=== PATIENT | female | born 1935 | race Caucasian/White ===

== ENCOUNTER 2016-03-16 17:17 | Emergency (ER) | payer OTHER, MEDICARE ==
[2016-03-16 17:49] VITALS: BP 171/94; PULSE 80; TEMP 97.8; BMI 28.0
[2016-03-16] MEDS ORDERED: SODIUM CHLORIDE 1,000 ML IV SCH (18:15)
--- NOTE | 2016-03-16 18:24 | PDOC ---
History of Present Illness - General Chief Complaint: Diarrhea Stated Complaint: DIARRHEA Time Seen by Provider: 03/16/16 18:03 - History of Present Illness Initial Comments: 03/16/16 18:22 80-year-old female with a past medical history of breast cancer and radiation therapy, on no chemotherapy at this time, GERD, hypertension, hyperlipidemia, prior cholecystectomy Patient states that her granddaughter is currently ill with a gastrointestinal illness Patient states that on Wednesday she started vomiting and vomiting multiple times Then on Wednesday she developed diarrhea She has had both vomiting and diarrhea since then She denies any fever, although she admits to some chills She denies any blood in her vomitus or diarrhea She denies any abdominal pain She denies any chest pain or shortness of breath She denies any sore throat or cough She denies any other complaint at this time, and the remainder of the review of systems is negative Past History - Past Medical History Allergies/Adverse Reactions: Allergies Allergy/AdvReac Type Severity Reaction Status Date / Time naproxen sodium [From Aleve] Allergy Intermediate Swelling Verified 03/16/16 17: 39 Sulfa (Sulfonamide Allergy Mild Hives Verified 03/16/16 17:39 Antibiotics) [Sulfa(Sulfonamide Antibiotics)] Penicillins Allergy Verified 03/16/16 17:39 Home Medications: Ambulatory Orders Atenolol [Tenormin -] 100 mg PO DAILY 03/08/12 Gabapentin [Neurontin -] 600 mg PO HS 03/08/12 Multivit-Min/FA/Lycopene/Lut [Centrum Silver Tablet] 1 each PO DAILY 03/08/12 Simvastatin [Zocor -] 10 mg PO Q48H 03/09/12 Solifenacin Succinate [Vesicare] 10 mg PO AM 10/12/12 Aspirin Coated [Ecotrin -] 81 mg PO DAILY 03/16/16 Gabapentin 300 mg PO DAILY 03/16/16 Ondansetron [Zofran Odt -] 4 mg SL TID #12 od.tablet 03/16/16 Cancer: Yes (BREAST, LUMPECTOMY) GI Disorders: Yes (ACID REFLUX) Disorders: Yes HTN: Yes Hypercholesterolemia: Yes Other medical history: TREMOR - Surgical History Cholecystectomy: Yes Orthopedic Surgery: Yes (KNEE SX LEFT) - Psycho/Social/Smoking Cessation Hx Anxiety: No Suicidal Ideation: No Smoking Status: No Smoking History: Never smoked Number of Cigarettes Smoked Daily: 0 Hx Alcohol Use: No Drug/Substance Use Hx: No Substance Use Type: None Review of Systems - Review of Systems Able to Perform ROS?: Yes Comments:: 03/16/16 18:23 12 point review of systems is as per history of present illness and otherwise negative *Physical Exam - Vital Signs Last Vital Signs Temp Pulse Resp BP Pulse Ox 97.8 F 80 16 171/94 98 03/16/16 17:18 03/16/16 17:18 03/16/16 17:18 03/16/16 17:18 03/16/16 17:18 - Physical Exam Comments: 03/16/16 18:23 Physical exam Last Vital Signs Temp Pulse Resp BP Pulse Ox 97.8 F 80 16 171/94 98 03/16/16 17:18 03/16/16 17:18 03/16/16 17:18 03/16/16 17:18 03/16/16 17:18 GENERAL: The patient is awake, alert, and fully oriented, and in no apparent distress. HEAD: Normal with no signs of trauma. EYES: Sclera anicteric ENT: Mucous membranes slightly dry NECK: Normal range of motion, supple LUNGS: Breath sounds equal, clear to auscultation bilaterally. No wheezes, and no crackles. HEART: Regular rate and rhythm, normal S1 and S2 without murmur, rub or gallop. ABDOMEN: Soft, nontender, normoactive bowel sounds. No guarding, no rebound. No masses appreciated. Abdomen is completely soft and nontender EXTREMITIES: Normal range of motion, no edema. No clubbing or cyanosis. No cords, erythema, or tenderness. NEUROLOGICAL: Cranial nerves II through XII grossly intact. Normal speech, normal gait. PSYCH: Normal mood, normal affect. SKIN: Warm, Dry, normal turgor, no rashes or lesions noted. ED Treatment Course - LABORATORY CBC & Chemistry Diagram: 03/16/16 18:00 03/16/16 18:00 Medical Decision Making - Medical Decision Making 03/16/16 18:24 Most likely viral gastroenteritis, since her granddaughter is ill with the same , and her granddaughter started with the symptoms first 03/16/16 18:57 Laboratory Results - last 24 hr 01/16/17 01/16/17 01/16/17 18:00 18:00 18:00 WBC 5.7 D RBC 4.89 Hgb 14.1 Hct 42.0 MCV 86.0 MCHC 33.6 RDW 12.2 Plt Count 247 MPV 9.0 Sodium 135 L Potassium 3.2 L D Chloride 101 Carbon Dioxide 25 Anion Gap 9 BUN 15 D Creatinine 0.5 L Creat Clearance w eGFR > 60 Random Glucose 104 D Calcium 9.1 Magnesium 1.8 Total Bilirubin 0.4 D AST 59 H D ALT 45 H Alkaline Phosphatase 71 Total Protein 6.8 Albumin 3.8 Lipase 49 Potassium low-will replete with 10 mEq IV, and 20 mEq by mouth 03/16/16 19:00 SIGN OUT Case discussed in detail with oncoming Emergency Physician including history, physical exam and ancillary studies. Oncoming Emergency Physician has assumed care for the patient and will complete the evaluation and treatment. Transfer of care to Dr. Bowens at 7 PM, awaiting repletion and reevaluation *DC/Admit/Observation/Transfer Diagnosis at time of Disposition: Dehydration, Vomiting and diarrhea, Hypokalemia - Discharge Dispostion Disposition: HOME Condition at time of disposition: Stable - Prescriptions Prescriptions: Ondansetron [Zofran Odt -] 4 mg SL TID #12 od.tablet - Patient Instructions Printed Discharge Instructions: DI for Vomiting -- Adult Additional Instructions: Clear liquids only for the next 6 hours.. If you're nauseous take one at the Zofran as often as every 6-8 hours if needed. When you get the Zofran from the pharmacy also merchandise pickup/receiving associate some Imodium and take as directed on the box if needed for diarrhea After that if you have had no further vomiting you may have bananas, rice, applesauce, or toast. If no further vomiting for another 8 hours you may have regular food. If you vomit again then nothing to eat or drink for 2 hours. then start back with the clear liquids. Return to the emergency department immediately with ANY new, persistent or worsening symptoms. You MUST call and follow up with your doctor tomorrow if not better. Please make sure your doctor reviews the results of your emergency evaluation.
[2016-03-16 18:35] LABS: MCH 28.9 pg (25.7-33.7); MCHC 33.6 g/dl (32.0-36.0); PLATELET COUNT 247 K/MM3 (134-434); RDW 12.2 % (11.6-15.6); WHITE BLOOD COUNT 5.7 K/mm3 (4.0-10.0)
[2016-03-16 18:45] LABS: ALBUMIN 3.8 g/dl (3.5-5.0); ALK PHOS 71 U/L (32-92); ANION GAP 9 (8-16); BILIRUBIN,TOTAL 0.4 mg/dl (0.2-1.0); CALCIUM 9.1 mg/dl (8.4-10.2); CO2 25 mmol/L (22-28); CREATININE 0.5 mg/dl (0.6-1.3); GLUCOSE,RANDOM 104 mg/dl (74-106); MAGNESIUM 1.8 mg/dL (1.8-2.4); SGOT/AST 59 U/L (10-42); SGPT/ALT 45 U/L (10-40); TOT PROT 6.8 g/dl (6.4-8.3)
[2016-03-16] MEDS ORDERED: POTASSIUM CHLORIDE TABS 20 MEQ TABLET.ER (FP) PO ONE ×2 (18:57→19:06)
[2016-03-16] MEDS ORDERED: KCL 10 MEQ IVPB 100 ML IVPB SCH (19:00)
--- NOTE | 2016-03-16 19:47 | PDOC ---
*Physical Exam - Vital Signs Last Vital Signs Temp Pulse Resp BP Pulse Ox 97.8 F 80 16 171/94 98 03/16/16 17:18 03/16/16 17:18 03/16/16 17:18 03/16/16 17:18 03/16/16 17:18 ED Treatment Course - LABORATORY CBC & Chemistry Diagram: 03/16/16 18:00 03/16/16 18:00 - ADDITIONAL ORDERS Additional order review: Laboratory Results 03/16/16 03/16/16 18:00 18:00 Sodium 135 L Potassium 3.2 L D Chloride 101 Carbon Dioxide 25 Anion Gap 9 BUN 15 D Creatinine 0.5 L Creat Clearance w eGFR > 60 Random Glucose 104 D Calcium 9.1 Magnesium 1.8 Total Bilirubin 0.4 D AST 59 H D ALT 45 H Alkaline Phosphatase 71 Total Protein 6.8 Albumin 3.8 Lipase 49 03/16/16 18:00 RBC 4.89 MCV 86.0 MCHC 33.6 RDW 12.2 MPV 9.0 - Medications Given in the ED: ED Medications Discontinued Medications Generic Name Dose Route Start Last Admin Trade Name Freq PRN Reason Stop Dose Admin Potassium Chloride 20 meq 03/16/16 18:57 03/16/16 19:11 K-Dur - PO 03/16/16 18:58 20 meq ONCE ONE Administration Progress Note - Progress Note Progress Note: Care of this patient was transferred to [place] from Dr. Ashton at 1900 hrs. This is a 80-year-old female who comes in status post multiple episodes of nausea vomiting and diarrhea. Patient was moderately dehydrated on arrival in the emergency room and is being hydrated via IV. Patient has no further vomiting here in the emergency room. Patient's potassium was slightly low she is being given IV potassium and will also be given a dose of by mouth K-Dur. 20:38 Reevaluation patient feels much better after 2 L of fluid and has had no further nausea vomiting or diarrhea in the emergency room. Patient able to tolerate by mouth's. Patient's potassium was slightly low so she was given K Dur as well as some potassium IV to replete her potassium. Patient given prescription for Zofran and told that she should also get some Imodium if she has further diarrhea. Patient does have a primary care doctor to follow-up with patient was told she should follow-up with her primary care doctor in 1-2 days for reevaluation. *DC/Admit/Observation/Transfer Diagnosis at time of Disposition: Dehydration, Vomiting and diarrhea, Hypokalemia - Discharge Dispostion Disposition: HOME Condition at time of disposition: Stable Admit: No - Prescriptions Prescriptions: Ondansetron [Zofran Odt -] 4 mg SL TID #12 od.tablet - Patient Instructions Printed Discharge Instructions: DI for Vomiting -- Adult Additional Instructions: Clear liquids only for the next 6 hours.. If you're nauseous take one at the Zofran as often as every 6-8 hours if needed. When you get the Zofran from the pharmacy also cotton picking machine operator some Imodium and take as directed on the box if needed for diarrhea After that if you have had no further vomiting you may have bananas, rice, applesauce, or toast. If no further vomiting for another 8 hours you may have regular food. If you vomit again then nothing to eat or drink for 2 hours. then start back with the clear liquids. Return to the emergency department immediately with ANY new, persistent or worsening symptoms. You MUST call and follow up with your doctor tomorrow if not better. Please make sure your doctor reviews the results of your emergency evaluation.
== END 2016-03-16 20:48 | disposition home or self-care (01) ==
LOC: FER 17:17
PROC: 3E033GC Introduction of Other Therapeutic Substance into Peripheral Vein, Percutaneous Approach (ICD-10-PCS; principal; 2016-03-16)
DX: E87.6 Hypokalemia (principal); E86.0 Dehydration; R11.0 Nausea; R19.7 Diarrhea, unspecified
CPT/HCPCS: 36415; 80053; 83690; 83735; 85027; 96365; 99282-25

== ENCOUNTER 2016-04-28 06:58 | Inpatient (IN) | payer OTHER, MEDICARE ==
[2016-04-03 11:02] VITALS: BMI 28.3
--- NOTE | 2016-04-27 10:00 | HP ---
Satellite H - Chief Complaint Chief Complaint: left knee pain - Past Medical History Allergies/Adverse Reactions: Allergies Allergy/AdvReac Type Severity Reaction Status Date / Time naproxen sodium [From Aleve] Allergy Severe Swelling Verified 04/03/16 10:50 Sulfa (Sulfonamide Allergy Severe Hives Verified 04/03/16 10:50 Antibiotics) [Sulfa(Sulfonamide Antibiotics)] Penicillins Allergy Unknown Verified 04/03/16 10:50 - Current Medications Current Medications: Home Medications Medication Instructions Recorded Atenolol [Tenormin -] 100 mg PO DAILY 03/08/12 Gabapentin [Neurontin -] 600 mg PO HS 03/08/12 Multivit-Min/FA/Lycopene/Lut 1 each PO DAILY 03/08/12 [Centrum Silver Tablet] Simvastatin [Zocor -] 10 mg PO Q48H 03/09/12 Solifenacin Succinate [Vesicare] 10 mg PO AM 10/12/12 Aspirin Coated [Ecotrin -] 81 mg PO HS 03/16/16 Gabapentin 300 mg PO DAILY 03/16/16 Ferrous Sulfate [Feosol] 325 mg PO DAILY 04/03/16 Satellite Physical Exam - Physical Examination General Appearance: Well Nourished, Well Developed, Alert & Oriented x3 ENT: Clear Lung: Normal air movement Heart: Regular rate & rhythm Extremities: Other (left knee- + swelling, +ttp, decr rom, nvi xrays show severe tricompartmental djd) Neurological: Intact, Alert, Oriented Satellite Impression/Plan - Impression/Plan Impression: left knee djd Operative Procedure: left joi tkr Date to be Performed: 04/28/16
[2016-04-28] MEDS ORDERED: GABAPENTIN 300 MG CAPSULE (FP) PO ONE (07:15)
[2016-04-28] MEDS ORDERED: CEFAZOLIN 1 GM/D5W 50 ML IVPB ONE (07:15)
[2016-04-28] MEDS ORDERED: TRANEXAMIC ACID 1000 MG/10 ML VIAL IVPUSH ONE (07:15)
[2016-04-28] MEDS ORDERED: GABAPENTIN 300 MG CAPSULE (FP) ONE (07:20)
[2016-04-28] MEDS ORDERED: ROPIVACAINE HCL 0.5% 30ML VIAL ONE (08:21)
[2016-04-28] MEDS ORDERED: DEXAMETHASONE SOD PHOSPHATE/PF 10 MG/ML SDV ONE (08:21)
[2016-04-28] MEDS ORDERED: MIDAZOLAM HCL 2 MG/2 ML SINGLE DOSE VIAL ONE ×2 (08:21→10:21)
[2016-04-28] MEDS ORDERED: SODIUM CHLORIDE 0.9% P/F 10 ML VIAL IJ ONE (08:21)
[2016-04-28] MEDS ORDERED: VANCOMYCIN 1,000 MG VIAL (RESTRICTED TO ID ONLY) ONE (08:45)
[2016-04-28] MEDS ORDERED: PROPOFOL 20 ML ONE ×2 (09:01)
[2016-04-28] MEDS ORDERED: DEXAMETHASONE SOD PHOSPHATE 4 MG/1 ML VIAL ONE (09:03)
[2016-04-28] MEDS ORDERED: ceFAZolin SODIUM 1 GM VIAL ONE (09:03)
[2016-04-28] MEDS ORDERED: ONDANSETRON 4 MG/2 ML VIAL ONE (09:03)
[2016-04-28] MEDS ORDERED: TRANEXAMIC ACID 1000 MG/10 ML VIAL ONE (09:03)
[2016-04-28] MEDS ORDERED: BUPIVACAINE HCL/PF 0.5% (5MG/ML) 10 ML VIAL ONE (09:05)
[2016-04-28] MEDS ORDERED: BACITRACIN 50,000 UNITS VIAL NR ONE (09:30)
[2016-04-28] MEDS ORDERED: VANCOMYCIN 1,000 MG VIAL (RESTRICTED TO ID ONLY) IVPB ONE (11:32)
[2016-04-28] MEDS ORDERED: MAGNESIUM HYDROX 2400MG/30ML ORAL SUSPENSION 30 ML CUP PO PRN (12:02)
[2016-04-28] MEDS ORDERED: ONDANSETRON 4 MG/2 ML VIAL IVPB PRN (12:02)
--- NOTE | 2016-04-28 12:07 | OP ---
Operative Note - Note: Operative Date: 04/28/16 (dejon) Pre-Operative Diagnosis: left knee djd Operation: left makoplasty tkr Post-Operative Diagnosis: Same as Pre-op Surgeon: Janes Brito Project Design Engineer: Fabrizio Nick Anesthesiologist/MRI SUPERVISOR: Irish Atwood Anesthesia: Spinal, Local Specimens Removed: bone fragments Estimated Blood Loss (mls): 50 (tourniquet) Operative Report Dictated: Yes
[2016-04-28] MEDS ORDERED: PATIENT'S OWN MEDICATION (NON-FORMULARY) (Simvastatin 10 MG) PO SCH (12:15)
[2016-04-28] MEDS ORDERED: LACTATED RINGERS SOLUTION 1,000 ML IV SCH (12:15)
[2016-04-28] MEDS ORDERED: ROPIVACAINE 0.2% 400ML 400 ML ML NR ONE ×2 (13:00→14:25)
[2016-04-28] MEDS ORDERED: MAG HYDROX/AL HYDROX/SIMETH 30 ML UNIT-DOSE CUP PO PRN (13:14)
[2016-04-28] MEDS ORDERED: ACETAMINOPHEN 325 MG TABLET (FP) ONE (13:15)
[2016-04-28] MEDS ORDERED: ACETAMINOPHEN 325 MG TABLET (FP) PO SCH (14:30)
[2016-04-28] MEDS: oxyCODONE HCL 5 MG TABLET PO PRN ×2 (16:37→20:13)
[2016-04-28] MEDS: CEFAZOLIN 1 GM/D5W 50 ML IVPB SCH (17:55)
[2016-04-28] MEDS: GABAPENTIN 300 MG CAPSULE (FP) PO SCH (21:20)
[2016-04-28] MEDS: SENNOSIDES/DOCUSATE COMBO (SENNA PLUS) TABLET (UD) PO SCH (21:20)
[2016-04-28] MEDS: ACETAMINOPHEN 325 MG TABLET (FP) PO SCH (21:21)
[2016-04-28] MEDS ORDERED: ATORVASTATIN CA 10 MG TABLET (FP) PO SCH (22:00)
[2016-04-29] MEDS: CEFAZOLIN 1 GM/D5W 50 ML IVPB SCH (01:12)
[2016-04-29] MEDS: oxyCODONE HCL 5 MG TABLET PO PRN ×4 (01:21→19:18)
[2016-04-29] MEDS: ACETAMINOPHEN 325 MG TABLET (FP) PO SCH ×4 (04:00→21:29)
[2016-04-29] MEDS: SOLIFENACIN SUCCINATE 5 MG TAB (FP) PO SCH (06:53)
[2016-04-29] MEDS ORDERED: SOLIFENACIN SUCCINATE 10 MG PO SCH (07:00)
--- NOTE | 2016-04-29 08:07 | PN ---
Progress Note (short form) - Note Progress Note: 80F POD1 s/p L TKR under spinal anesthetic with continuous adductor canal catheter and selective tibial block for post operative pain control. Pt states that pain is well controlled, AVSS, reports no anesthetic complications. Sensory and motor function is intact in both lower extremities.
[2016-04-29] MEDS: ASPIRIN 325 MG TABLET PO SCH (08:17)
[2016-04-29 08:51] LABS: MCH 28.6 pg (25.7-33.7); MCHC 32.8 g/dl (32.0-36.0); MEAN PLT VOLUME 9.9 fl (7.5-11.1); PLATELET COUNT 262 K/MM3 (134-434); RDW 12.1 % (11.6-15.6); WHITE BLOOD COUNT 12.6 K/mm3 (4.0-10.0)
[2016-04-29 09:14] LABS: CALCIUM 9.2 mg/dl (8.4-10.2); CREATININE 0.7 mg/dl (0.6-1.3)
[2016-04-29] MEDS: SENNOSIDES/DOCUSATE COMBO (SENNA PLUS) TABLET (UD) PO SCH ×2 (09:25→21:25)
[2016-04-29] MEDS: ATENOLOL 50 MG TABLET (FP) PO SCH (09:26)
[2016-04-29] MEDS: GABAPENTIN 300 MG CAPSULE (FP) PO SCH ×2 (09:26→21:25)
[2016-04-29] MEDS: PANTOPRAZOLE 40 MG TABLET (FP) PO SCH (09:26)
[2016-04-29] MEDS: MULTIVITAMINS (DAILY MVI) TABLET (FP) PO SCH (09:26)
[2016-04-29] MEDS: FERROUS SO4 325 MG TABLET (FP) PO SCH (09:26)
--- NOTE | 2016-04-29 09:29 | PN ---
Progress Note (short form) - Note Progress Note: Ortho Pt seen and examined s/p left joi tkr pod #1 Selected Entries 04/29/16 06:02 Temperature 98.8 F Pulse Rate 72 Respiratory 18 Rate Blood Pressure 105/52 Laboratory Tests 04/29/16 07:50 WBC 12.6 H D Hgb 13.2 Hct 40.1 Plt Count 262 dressing c/d/i, calf soft, nt rom 0-50, nvi a/p PT dvt ppx pain control d/c home tomorrow if stable
--- NOTE | 2016-04-29 14:18 | OP ---
DATE OF OPERATION: 04/28/2016 PREOPERATIVE DIAGNOSIS: Degenerative joint disease, left knee. POSTOPERATIVE DIAGNOSIS: Degenerative joint disease, left knee. PROCEDURE: Left total knee replacement with robotic-assisted navigation (MAKOplasty). SURGICAL ATTENDING: Janes Brito MD STEAM CRANE OPERATOR: KENNY Espinoza ANESTHESIA: Spinal and regional. CLOSURE: A with a 3 femur, 4 tibia, and 11 TS polyethylene, a 32 patella; No. 1 Vicryl fascia, 0 and 2-0 subcutaneous with 3-0 Monocryl subcuticular with skin glue for the skin, 4-0 undyed Vicryl for the pin sites. ESTIMATED BLOOD LOSS: Negligible. TOURNIQUET TIME: Approximately 75 minutes. DESCRIPTION OF OPERATIVE PROCEDURE: Patient taken to the operating room on April 28, 2016. Regional and spinal anesthesia were administered by the anesthesiologist. IV Kefzol was given prophylactically prior to the case as well as tranexamic acid. A well-padded pneumatic tourniquet was placed on the left proximal thigh. Left lower extremity was prepped and draped in the usual sterile fashion. A 12-cm midline longitudinal incision centered over the patella . Hemostasis achieved with Bovie cautery. Sharp dissection was carried down to the level of the extensor mechanism allowing me to perform the procedure. A medial parapatellar arthrotomy was then performed, and patella was inverted and the knee was flexed up to 90 degrees. Subperiosteal dissection was done on the anterior medial proximal tibia until the knee was able to be brought forward. This was facilitated by taking the anterior and posterior cruciates and the menisci. Two bicortical pins were placed in the femur and 2 on the tibia 1 handbreadth above and below the incision. Two of these pins were fastened with the from the navigation device. The knee was then registered with the navigation device with center of rotation at the hip, medial and lateral malleoli, and multiple points on the femur and tibia. Confirmation of excellent registration was confirmed by "popping the bubbles." The osteophytes circumferentially were debrided. The knee was tensioned in extension at 90 degrees of flexion to measure the gaps. The virtual position of the component was slightly adjusted in order to optimize the position of the components. The robot was then brought into the field. It was then registered with the navigation device. The proximal tibia and the distal femoral cuts were all made using the robotic device to allow a 3 femur and a 4 tibia. The tensioner was placed in extension and in flexion and revealed excellent and identical tension both medially and laterally. The box was made for the femoral component. The trial component was applied for a trial with an [address]. Confirmation of proper rotation of the component was also confirmed by use of the navigation device to be in the appropriate position. The patella was calipered for thickness and osteotomized at the appropriate level. The patella was then drilled with a 32 lollipop. A trial component was applied. The knee was taken through a range of motion and found to have excellent flexion and extension with excellent tracking of the patella with excellent tension to varus/valgus and throughout the range of motion. The trial components were removed; the keel was made in the tibia. The knee was pulse antibiotic irrigated. The real components were then cemented in using modern generation cement techniques with antibiotic cement, pressurization in extension. After the cement was hardened, the knee was thoroughly inspected to remove all excess cement and then irrigated copiously. A No. 11 TS implant was then clipped into place. Range of motion, stability, and tracking were as described earlier. Vancomycin powder was placed in the knee. The medial parapatellar arthrotomy was then closed using No. 1 Vicryl interrupted suture, 0 and 2-0 silk, 3-0 Monocryl subcuticular for the skin with skin glue, 4-0 undyed Vicryl for the pin sites. A sterile pressure dressing was placed and the patient awakened from anesthesia and transferred to recovery in stable condition. Tourniquet was deflated at the end of the case. Total tourniquet time was approximately 75 minutes. Mor [id number]
[2016-04-30] MEDS: oxyCODONE HCL 5 MG TABLET PO PRN ×3 (04:13→11:21)
[2016-04-30] MEDS: ACETAMINOPHEN 325 MG TABLET (FP) PO SCH ×2 (04:13→10:00)
[2016-04-30] MEDS: SOLIFENACIN SUCCINATE 5 MG TAB (FP) PO SCH (06:11)
[2016-04-30] MEDS: ASPIRIN 325 MG TABLET PO SCH (08:15)
[2016-04-30 08:20] LABS: MCH 28.7 pg (25.7-33.7); MCHC 32.8 g/dl (32.0-36.0); MEAN CELL VOLUME 87.4 fl (80-96); MEAN PLT VOLUME 9.5 fl (7.5-11.1); PLATELET COUNT 262 K/MM3 (134-434); RDW 12.4 % (11.6-15.6); WHITE BLOOD COUNT 11.9 K/mm3 (4.0-10.0)
--- NOTE | 2016-04-30 08:29 | PN ---
Progress Note (short form) - Note Progress Note: Ortho Pt seen and examined s/p left joi tkr pod #2 Selected Entries 04/30/16 05:56 Temperature 100.6 F H Pulse Rate 85 Respiratory 19 Rate Blood Pressure 130/64 Laboratory Tests 04/30/16 07:00 WBC 11.9 H Hgb 12.7 Hct 38.8 Plt Count 262 dressing c/d/i, calf soft, nt rom 0-50, nvi a/p PT dvt ppx pain control d/c home today f/u in the office next week
--- NOTE | 2016-04-30 08:30 | DS ---
Physical Examination Vital Signs: Vital Signs Temperature 100.6 F H 04/30/16 05:56 Pulse Rate 85 04/30/16 05:56 Respiratory Rate 19 04/30/16 05:56 Blood Pressure 130/64 04/30/16 05:56 O2 Sat by Pulse Oximetry (%) 94 L 04/30/16 05:56 Labs: CBC, BMP 04/30/16 07:00 04/29/16 07:50 Discharge Summary Reason For Visit: OSTEOARTHRITIS Procedures: Principal: s/p left joi tkr Hospital Course: admitted for elective left joi tkr, uneventful post-op, stable for d/c Condition: Good - Instructions Diet, Activity, Other Instructions: Post-op Instructions-Total Knee Replacement Call the office for a follow-up appointment in 1 week - [phone] Aspirin 325mg daily for 6 weeks. Pain medication was sent into your pharmacy. Apply Graduated Compression Stockings (TEDs) to both lower extremities- remove daily for hygiene ONLY Apply Sequential Compression Device (SCDs) to both Lower extremities remove for PT and hygiene ONLY Apply cold packs to affected area for 15 minutes every 2 hours. Physical Therapist will come to your home for the first 5 days. You will be set up with outpatient PT at your first post-operative visit. Patient may ambulate as tolerated-encourage self care (at least every 2-3 hours while awake) with walker or cane Maintain Aquacel (waterproof) dressing to operative wound (will be removed by surgeon at first office visit) Shower with Aquacel dressing in place-if Aquacel integrity compromised, remove and apply dry sterile dressing and notify Orthopedist. DO NOT SHOWER unless Orthopedists approves without Aquacel dressing CONTACT THE OFFICE FOR ANY CHANGE IN YOUR CONDITION (for example-fever greater than 102 degrees,excessive bleeding from operative site, purulent drainage, severe swelling or pain) GO TO THE EMERGENCY ROOM IF THERE IS A MEDICAL EMERGENCY Knee Precautions: * Keep a rolled towel under affected heel while in bed or chair (to keep knee in extension) * Keep affected leg elevated except during mealtimes * DO NOT PLACE PILLOW UNDER AFFECTED KNEE * If you have any questions, please do not hesitate to call the office - [phone]. Referrals: Janes Brito MD [Staff Physician] - Disposition: VNS/HOME HEALTH CARE - Home Medications Comprehensive Discharge Medication List: Ambulatory Orders Atenolol [Tenormin -] 100 mg PO DAILY 03/08/12 Gabapentin [Neurontin -] 600 mg PO HS 03/08/12 Multivit-Min/FA/Lycopene/Lut [Centrum Silver Tablet] 1 each PO DAILY 03/08/12 Simvastatin [Zocor -] 10 mg PO Q48H 03/09/12 Solifenacin Succinate [Vesicare] 10 mg PO AM 10/12/12 Gabapentin 300 mg PO DAILY 03/16/16 Ferrous Sulfate [Feosol] 325 mg PO DAILY 04/03/16 Aspirin [ASA -] 325 mg PO DAILY@0800 tablet 04/28/16 Oxycodone HCl/Acetaminophen [Percocet 5-325 mg Tablet -] 1 - 2 tab PO Q6H #50 tab MDD 8 04/28/16
[2016-04-30 09:39] VITALS: BP 155/66; PULSE 80; TEMP 98.9
[2016-04-30] MEDS: GABAPENTIN 300 MG CAPSULE (FP) PO SCH (09:40)
[2016-04-30] MEDS: MULTIVITAMINS (DAILY MVI) TABLET (FP) PO SCH (09:40)
[2016-04-30] MEDS: PANTOPRAZOLE 40 MG TABLET (FP) PO SCH (09:40)
[2016-04-30] MEDS: FERROUS SO4 325 MG TABLET (FP) PO SCH (09:40)
[2016-04-30] MEDS: ATENOLOL 50 MG TABLET (FP) PO SCH (09:40)
[2016-04-30] MEDS: SENNOSIDES/DOCUSATE COMBO (SENNA PLUS) TABLET (UD) PO SCH (09:40)
--- NOTE | 2016-04-30 10:26 | PN ---
Progress Note (short form) - Note Progress Note: Pot op day#2.S/P Left TKR under spinal anesthesia with left adductor canal catheter placement for post op pain management.Patient stable and c/o pain score of 4-5/10 on movement but sitting comfortably.Adducter canal catheter taken out today.Patient on po pain medication and will be dc home today.No any anesthesia related problem.Patient dc from the anesthesia care.
--- NOTE | 2016-04-30 14:01 | PATH ---
Surgical Pathology Report Patient Name: YUE COSTA Med. Rec. #: [id number] /Age/Gender: 1935 (Age: 80) / F Account: [id number] Location: [facility] MED-SURG Taken: 04/28/2016 Received: 04/28/2016 Reported: 04/30/2016 Physicians: Janes Brito M.D. Specimen(s) Received LEFT KNEE BONE AND TISSUE Clinical History Left knee osteoarthritis Final Diagnosis BONE AND SOFT TISSUE, LEFT KNEE, REPLACEMENT: DEGENERATIVE JOINT DISEASE. Electronically Signed Alexander Leung M.D. Gross Description Received in formalin, labeled "left knee bone and tissue," is a 13.5 x 10.5 x 2.0 cm aggregate of multiple casper, irregular portions of bone and soft tissue. The tibial plateau measures 7.2 x 4.7 x 1.3 cm. There is a 1.5 cm greatest dimension area of eburnation present. The remaining articular surfaces are casper-yellow and diffusely granular. The underlying trabecular bone is yellow and hard. [place] Setter sections are submitted in one cassette, following decalcification. /04/29/201604/29/2016
== END 2016-04-30 11:48 | disposition home health service (06) | DRG 470 ==
LOC: FM/S 06:58
PROVIDERS: ADMIT Orthopaedic Surgery; ATTEND Orthopaedic Surgery
PROC: 8E0Y0CZ Robotic Assisted Procedure of Lower Extremity, Open Approach (ICD-10-PCS; 2016-04-28)
PROC: 0SRD0J9 Replacement of Left Knee Joint with Synthetic Substitute, Cemented, Open Approach (ICD-10-PCS; principal; 2016-04-28 10:18)
DX: M17.12 Unilateral primary osteoarthritis, left knee (principal); I10 Essential (primary) hypertension
CPT/HCPCS: 36415; 73560-TC-LT; 80048; 85027; 88305-TC; 88311-TC; 94010; 94760; 97116-GP; 97161-GP

== ENCOUNTER 2016-05-05 09:44 | Emergency (ER) | payer OTHER, MEDICARE ==
[2016-05-05] MEDS ORDERED: SODIUM CHLORIDE 250 ML IV STA (09:49)
[2016-05-05 09:50] VITALS: BMI 27.4
--- NOTE | 2016-05-05 09:50 | PDOC ---
History of Present Illness - General Chief Complaint: Urinary Problem Stated Complaint: URINARY SX, FEELS DEHYDRATED Time Seen by Provider: 05/05/16 09:47 - History of Present Illness Initial Comments: 05/05/16 10:53 Chief complaint: Frequency of urination History of present illness: Patient complains of increased frequency of urination, especially at night, for several days. There is also mild dysuria. No fever/chills or back pain. The patient underwent a left total knee replacement approximately one week ago under general anesthesia, but was not intubated, and does not recall having a urinary catheter. She stopped taking narcotic pain relievers approximately 3 days ago because of constipation, and had a bowel movement this morning. Review of systems: As above. Specifically, no fever/chills, back pain, abdominal pain, nausea, vomiting, diarrhea, chest pain, shortness of breath, visual or focal neurologic symptoms, unsteadiness of gait. There is no pain in the left knee, no increase in swelling and no drainage. She is ambulating well with the assistance of a walker Past medical history: High blood pressure, elevated cholesterol, overactive bladder, chronic arthritis pain Medications: Atenolol, Zocor, Vesicare, gabapentin, regular strength aspirin, vitamins, and oxycodone, which she recently discontinued. ALLERGIES: Naproxen, sulfa, penicillin Social history: Lives alone, cares for herself with the assistance of her daughter, who lives upstairs. The daughter has been staying with her mother since the surgery for assistance. No tobacco alcohol or nonprescription drugs. No significant disability other than from her arthritis Family history: Reviewed and noncontributory Physical exam: Alert oriented 3, well-developed well-nourished, no acute distress, cheerful and cooperative Afebrile, vital signs normal PERRLA, fundi benign, ENT clear Neck supple without bruit mass or nodes Chest clear to P&A full breath sounds throughout bilaterally no wheezes rales or rhonchi CV S1 and S2 distant without murmur rub or gallop pulses full and symmetric no JVD no bruits Abdomen mildly distended, normal bowel sounds, soft without masses tenderness organomegaly. Neurological C2 to 12 intact. No focal sensory or motor deficits. Strength symmetric. Gait stable with assistance of a walker to compensate for her recent left knee surgery Extremities: There is mild swelling of the left knee and calf on the side of the surgery. The original surgical dressing is in place, but there appears to be no drainage. She is scheduled to have the wound checked on with Dr. Brito the surgeon. The wrap was left in place since there were no symptoms of problem with the wound. Impression: The patient has chronic overactive bladder, but seems to be worse lately, accompanied by some mild dysuria. Possible UTI subsequent to the surgery. Appears to be adequately hydrated Plan: Urinalysis, urine culture, CBC and chemistries, small dose of fluids and observation. Past History - Past Medical History Allergies/Adverse Reactions: Allergies Allergy/AdvReac Type Severity Reaction Status Date / Time naproxen sodium [From Aleve] Allergy Severe Swelling Verified 05/05/16 09:45 Sulfa (Sulfonamide Allergy Severe Hives Verified 05/05/16 09:45 Antibiotics) [Sulfa(Sulfonamide Antibiotics)] Penicillins Allergy Unknown Verified 05/05/16 09:45 Home Medications: Ambulatory Orders Atenolol [Tenormin -] 100 mg PO DAILY 03/08/12 Gabapentin [Neurontin -] 600 mg PO HS 03/08/12 Multivit-Min/FA/Lycopene/Lut [Centrum Silver Tablet] 1 each PO DAILY 03/08/12 Simvastatin [Zocor -] 10 mg PO Q48H 03/09/12 Solifenacin Succinate [Vesicare] 10 mg PO AM 10/12/12 Gabapentin 300 mg PO DAILY 03/16/16 Ferrous Sulfate [Feosol] 325 mg PO DAILY 04/03/16 Aspirin [ASA -] 325 mg PO DAILY@0800 tablet 04/28/16 Polyethylene Glycol 3350 [Miralax (For Bowel Prep) -] 17 gm PO DAILY #1 bottle 05/05/16 Anemia: No Asthma: No Cancer: Yes (BREAST, LUMPECTOMY) Cardiac Disorders: No CVA: No COPD: No CHF: No Dementia: No Diabetes: No GI Disorders: No Disorders: No HTN: No Hypercholesterolemia: No Liver Disease: No Seizures: No Thyroid Disease: No - Surgical History Abdominal Surgery: No Appendectomy: No Cardiac Surgery: No Cholecystectomy: Yes Lung Surgery: No Neurologic Surgery: No Orthopedic Surgery: Yes (KNEE SX LEFT 1989) - Psycho/Social/Smoking Cessation Hx Anxiety: No Suicidal Ideation: No Smoking Status: No Smoking History: Never smoked Have you smoked in the past 12 months: No Number of Cigarettes Smoked Daily: 0 Hx Alcohol Use: No Drug/Substance Use Hx: No Substance Use Type: None Hx Substance Use Treatment: No ED Treatment Course - LABORATORY CBC & Chemistry Diagram: 05/05/16 10:05 05/05/16 10:05 *DC/Admit/Observation/Transfer Diagnosis at time of Disposition: Dehydration - Discharge Dispostion Disposition: HOME Condition at time of disposition: Improved Admit: No - Prescriptions Prescriptions: Polyethylene Glycol 3350 [Miralax (For Bowel Prep) -] 17 gm PO DAILY #1 bottle - Referrals Referrals: Tyra Cummins [Primary Care Provider] - 2 Days - Patient Instructions Printed Discharge Instructions: DI for Dehydration -- Adult Additional Instructions: Preliminary urinalysis shows no sign of urinary tract infection. However, urine culture is pending. If this shows the presence of infection in 24-48 hours, he will be contacted and antibiotics will be prescribed. In the meantime, drink plenty of fluids, rest, and follow-up with your primary physician. Also be sure to see her orthopedic surgeon as directed on .
[2016-05-05 10:17] LABS: EOSINOPHIL 1.5 % (0-4.5); MCH 28.7 pg (25.7-33.7); MCHC 33.2 g/dl (32.0-36.0); MEAN CELL VOLUME 86.3 fl (80-96); MEAN PLT VOLUME 8.4 fl (7.5-11.1); NEUTROPHILS 72.8 % (42.8-82.8); PLATELET COUNT 456 K/MM3 (134-434); RDW 12.4 % (11.6-15.6); WHITE BLOOD COUNT 13.6 K/mm3 (4.0-10.0)
[2016-05-05 10:32] LABS: PH,URINE 5.5 (4.5-8); URINE APPEARANCE Clear; URINE BILIRUBIN Negative (NEGATIVE); URINE BLOOD Negative (NEGATIVE); URINE GLUCOSE (UA) Negative (NEGATIVE); URINE KETONE Negative (NEGATIVE); URINE NITRITE Negative (NEGATIVE); URINE PROTEIN Negative (NEGATIVE); URINE UROBILINOGEN 0.2 E.U/dl (0.2-1.0)
[2016-05-05 10:33] LABS: URINE BACTERIA FEW /hpf (NEGATIVE); URINE COLOR YELLOW; URINE LEUK ESTERASE TRACE (NEGATIVE); URINE RBC 0-3 /hpf (0-3); URINE WBC 0-3 (3-5)
[2016-05-05 11:24] LABS: CPK(DFH) 57 IU/L (26-140)
[2016-05-05 11:25] LABS: ALK PHOS 85 U/L (32-92); ANION GAP 10 (8-16); BILIRUBIN,TOTAL 1.6 mg/dl (0.2-1.0); CO2 23 mmol/L (22-28); CREATININE 0.8 mg/dl (0.6-1.3); GLUCOSE,RANDOM 119 mg/dl (74-106); SGOT/AST 37 U/L (10-42); SGPT/ALT 35 U/L (10-40); TOT PROT 6.4 g/dl (6.4-8.3)
[2016-05-05 11:27] LABS: TROPONIN I (DFP) < 0.03 ng/ml (0.03-0.50)
[2016-05-05] MEDS ORDERED: SODIUM CHLORIDE 500 ML IV STA (11:49)
[2016-05-05 14:30] VITALS: BP 143/68; PULSE 71; TEMP 98.1
== END 2016-05-05 13:30 | disposition home or self-care (01) ==
LOC: FER 09:44
PROC: 3E0337Z Introduction of Electrolytic and Water Balance Substance into Peripheral Vein, Percutaneous Approach (ICD-10-PCS; principal; 2016-05-05)
DX: E86.0 Dehydration (principal); Z85.3 Personal history of malignant neoplasm of breast; Z96.652 Presence of left artificial knee joint; I10 Essential (primary) hypertension; E78.00 Pure hypercholesterolemia, unspecified; N32.9 Bladder disorder, unspecified
CPT/HCPCS: 36415; 80053; 81003; 81015; 82550; 84484; 85025; 87086; 87186; 96360; 96361; 99283-25

== ENCOUNTER 2020-02-23 19:35 | Inpatient (IN) | payer OTHER, MEDICARE ==
[2020-02-23] MEDS ORDERED: SODIUM CHLORIDE 0.9% 500 ML INFUS.BAG IV ONE (20:47)
[2020-02-23] MEDS ORDERED: ACETAMINOPHEN 1000 MG/100 ML BAG IVPB ONE (20:47)
[2020-02-23] MEDS ORDERED: ACETAMINOPHEN INJECTION 100 ML IVPB ONE (21:37)
[2020-02-23] MEDS ORDERED: DEXAMETHASONE SOD PHOSPHATE 10 MG/1 ML VIAL IVPUSH ONE (21:59)
[2020-02-23] MEDS ORDERED: DEXAMETHASONE SOD PHOSPHATE 10 MG/1 ML VIAL ONE (22:01)
[2020-02-23 22:12] LABS: HEMATOCRIT 40.4 % (32.4-45.2); HEMOGLOBIN 13.6 GM/dL (10.7-15.3); MCH 29.6 pg (25.7-33.7); MCHC 33.7 g/dl (32.0-36.0); MEAN CELL VOLUME 87.6 fl (80-96); RBC 4.61 M/mm3 (3.60-5.2); RDW 12.8 % (11.6-15.6); WHITE BLOOD COUNT 7.3 K/mm3 (4.0-10.0)
[2020-02-23 22:13] LABS: BASO % 0.9 % (0-2.0); LYMPH % 13.7 % (8-40); MONO % 10.5 % (3.8-10.2); NEUT % 74.9 % (42.8-82.8); PLATELET COUNT 205 K/MM3 (134-434)
[2020-02-23 22:20] LABS: INR 1.18 (0.83-1.09); PROTHROMBIN TIME (PATIENT) 14.4 SEC (9.7-13.0)
[2020-02-23 22:22] LABS: CHLORIDE 103 mmol/L (98-107); SODIUM 137 mmol/L (136-145)
[2020-02-23 22:23] LABS: ACTIVATED PTT 25.2 SECONDS (25.2-36.5)
[2020-02-23 22:24] LABS: CALCIUM 8.2 mg/dL (8.5-10.1)
[2020-02-23 22:25] LABS: ALBUMIN 3.1 g/dl (3.4-5.0); ANION GAP 7 MMOL/L (8-16); BLOOD UREA NITROGEN 22.8 mg/dL (7-18); CO2 27 mmol/L (21-32); GLUCOSE,RANDOM 107 mg/dL (74-106)
[2020-02-23 22:27] LABS: BILIRUBIN,DIRECT 0.2 mg/dL (0.0-0.2); CREATININE 0.7 mg/dL (0.55-1.3); SGOT/AST 45 U/L (15-37)
[2020-02-23 22:28] LABS: LDH 282 U/L (84-246)
[2020-02-23 22:30] LABS: ALK PHOS 61 U/L (45-117)
[2020-02-23 22:36] LABS: BILIRUBIN,TOTAL 0.5 mg/dL (0.2-1); SGPT/ALT 31 U/L (13-61)
[2020-02-24 00:39] LABS: URINE APPEARANCE CLEAR; URINE BILIRUBIN NEGATIVE (NEGATIVE); URINE COLOR YELLOW; URINE GLUCOSE (UA) NEGATIVE (NEGATIVE); URINE KETONE NEGATIVE (NEGATIVE); URINE LEUK ESTERASE NEGATIVE (NEGATIVE); URINE NITRITE NEGATIVE (NEGATIVE); URINE PROTEIN NEGATIVE (NEGATIVE); URINE UROBILINOGEN 0.2 mg/dL (0.2-1.0)
[2020-02-24] MEDS ORDERED: PNEUMOC 13-VAL CONJ-DIP CRM/PF 0.5 ML DISP.SYRIN IM ONE (03:04)
[2020-02-24] MEDS ORDERED: PNEUMOCOCCAL 23 VACCINE 0.5 ML VIAL IM ONE (09:00)
[2020-02-24] MEDS ORDERED: PT OWN MED DRAWER 7, Y5N ONE (09:46)
[2020-02-24] MEDS ORDERED: methylPREDNISolone NA SUCC 40 MG/1 ML VIAL IVPUSH SCH (10:00)
[2020-02-24] MEDS: SOLIFENACIN SUCCINATE 5 MG TAB PO SCH (10:33)
[2020-02-24] MEDS: GABAPENTIN 300 MG CAPSULE PO SCH (10:33)
[2020-02-24] MEDS: MULTIVITAMINS THER W-MINERALS COMBO TABLET (FP) PO SCH (10:33)
[2020-02-24] MEDS: ATENOLOL 50 MG TABLET (FP) PO SCH (10:33)
[2020-02-24] MEDS: FERROUS SO4 325 MG TABLET (FP) PO SCH (10:33)
[2020-02-24] MEDS: HEPARIN NA (PORCINE) 5,000 UNITS/ML 1ML VIAL SQ SCH ×2 (10:34→21:22)
[2020-02-24] MEDS ORDERED: REMDESIVIR 200 MG in SODIUM CHLORIDE 210 ML IVPB ONE (13:00)
[2020-02-24] MEDS: DEXAMETHASONE SOD PHOSPHATE 4 MG/1 ML VIAL IVPUSH SCH (17:40)
[2020-02-24] MEDS ORDERED: MELATONIN 5 MG TABLETS PO ONE (21:44)
[2020-02-24] MEDS: ATORVASTATIN CA 10 MG TABLET (FP) PO SCH (22:18)
[2020-02-25] MEDS ORDERED: PT OWN MED DRAWER 7, Y5N ONE (06:03)
[2020-02-25] MEDS: SOLIFENACIN SUCCINATE 5 MG TAB PO SCH (07:30)
[2020-02-25 08:04] LABS: ALBUMIN 2.9 g/dl (3.4-5.0); BLOOD UREA NITROGEN 27.4 mg/dL (7-18); CALCIUM 8.5 mg/dL (8.5-10.1)
[2020-02-25 08:07] LABS: CREATININE 0.7 mg/dL (0.55-1.3)
[2020-02-25 08:09] LABS: BILIRUBIN,TOTAL 0.9 mg/dL (0.2-1); TOT PROT 6.9 g/dl (6.4-8.2)
[2020-02-25 08:22] LABS: BASO % 0.1 % (0-2.0); HEMATOCRIT 41.8 % (32.4-45.2); HEMOGLOBIN 13.9 GM/dL (10.7-15.3); MCHC 33.2 g/dl (32.0-36.0); MEAN CELL VOLUME 87.5 fl (80-96); MEAN PLT VOLUME 9.6 fl (7.5-11.1); MONO % 9.1 % (3.8-10.2); NEUT % 78.8 % (42.8-82.8); PLATELET COUNT 242 K/MM3 (134-434); RBC 4.78 M/mm3 (3.60-5.2); RDW 13.1 % (11.6-15.6); WHITE BLOOD COUNT 11.7 K/mm3 (4.0-10.0)
[2020-02-25] MEDS: DEXAMETHASONE SOD PHOSPHATE 4 MG/1 ML VIAL IVPUSH SCH (11:02)
[2020-02-25] MEDS: FERROUS SO4 325 MG TABLET (FP) PO SCH (11:03)
[2020-02-25] MEDS: HEPARIN NA (PORCINE) 5,000 UNITS/ML 1ML VIAL SQ SCH ×2 (11:03→23:14)
[2020-02-25] MEDS: MULTIVITAMINS THER W-MINERALS COMBO TABLET (FP) PO SCH (11:03)
[2020-02-25] MEDS: GABAPENTIN 300 MG CAPSULE PO SCH (11:03)
[2020-02-25] MEDS: ATENOLOL 50 MG TABLET (FP) PO SCH (11:03)
[2020-02-25 12:35] VITALS: BMI 28.1
[2020-02-25] MEDS: REMDESIVIR 100 MG in SODIUM CHLORIDE 230 ML IVPB SCH (14:37)
[2020-02-25] MEDS ORDERED: MELATONIN 5 MG TABLETS PO ONE (22:45)
[2020-02-26] MEDS ORDERED: PT OWN MED DRAWER 7, Y5N ONE ×2 (04:59→09:46)
[2020-02-26] MEDS: SOLIFENACIN SUCCINATE 5 MG TAB PO SCH (06:37)
[2020-02-26 07:21] LABS: BASO % 0.1 % (0-2.0); HEMATOCRIT 40.3 % (32.4-45.2); HEMOGLOBIN 13.5 GM/dL (10.7-15.3); MCH 29.1 pg (25.7-33.7); MCHC 33.4 g/dl (32.0-36.0); MEAN CELL VOLUME 87.1 fl (80-96); MEAN PLT VOLUME 9.4 fl (7.5-11.1); MONO % 10.3 % (3.8-10.2); NEUT % 76.6 % (42.8-82.8); PLATELET COUNT 251 K/MM3 (134-434); RBC 4.63 M/mm3 (3.60-5.2); RDW 13.2 % (11.6-15.6); WHITE BLOOD COUNT 7.7 K/mm3 (4.0-10.0)
[2020-02-26 07:38] LABS: ALBUMIN 2.7 g/dl (3.4-5.0); BLOOD UREA NITROGEN 29.8 mg/dL (7-18); CALCIUM 8.5 mg/dL (8.5-10.1)
[2020-02-26 07:41] LABS: CREATININE 0.6 mg/dL (0.55-1.3)
[2020-02-26 07:43] LABS: BILIRUBIN,TOTAL 0.9 mg/dL (0.2-1); TOT PROT 6.4 g/dl (6.4-8.2)
[2020-02-26] MEDS: HEPARIN NA (PORCINE) 5,000 UNITS/ML 1ML VIAL SQ SCH ×2 (09:58→21:25)
[2020-02-26] MEDS: FERROUS SO4 325 MG TABLET (FP) PO SCH (09:58)
[2020-02-26] MEDS: GABAPENTIN 300 MG CAPSULE PO SCH (09:58)
[2020-02-26] MEDS: DEXAMETHASONE SOD PHOSPHATE 4 MG/1 ML VIAL IVPUSH SCH (09:58)
[2020-02-26] MEDS: ATENOLOL 50 MG TABLET (FP) PO SCH (09:58)
[2020-02-26] MEDS: MULTIVITAMINS THER W-MINERALS COMBO TABLET (FP) PO SCH (11:50)
[2020-02-26] MEDS: REMDESIVIR 100 MG in SODIUM CHLORIDE 230 ML IVPB SCH (13:10)
[2020-02-26] MEDS: MELATONIN 5 MG TABLETS PO PRN (21:24)
[2020-02-26] MEDS: ATORVASTATIN CA 10 MG TABLET (FP) PO SCH (21:24)
[2020-02-27] MEDS ORDERED: PT OWN MED DRAWER 7, Y5N ONE (06:16)
[2020-02-27] MEDS: SOLIFENACIN SUCCINATE 5 MG TAB PO SCH (06:45)
[2020-02-27 07:44] LABS: HEMATOCRIT 40.3 % (32.4-45.2); HEMOGLOBIN 13.7 GM/dL (10.7-15.3); LYMPH % 15.4 % (8-40); MCH 29.3 pg (25.7-33.7); MEAN CELL VOLUME 86.1 fl (80-96); MEAN PLT VOLUME 9.2 fl (7.5-11.1); MONO % 10.3 % (3.8-10.2); NEUT % 74.3 % (42.8-82.8); PLATELET COUNT 290 K/MM3 (134-434); RBC 4.69 M/mm3 (3.60-5.2); RDW 12.7 % (11.6-15.6); WHITE BLOOD COUNT 8.7 K/mm3 (4.0-10.0)
[2020-02-27 08:28] LABS: ALBUMIN 2.6 g/dl (3.4-5.0); CALCIUM 8.4 mg/dL (8.5-10.1)
[2020-02-27 08:29] LABS: BLOOD UREA NITROGEN 29.3 mg/dL (7-18)
[2020-02-27 08:31] LABS: CREATININE 0.6 mg/dL (0.55-1.3)
[2020-02-27 08:32] LABS: BILIRUBIN,TOTAL 0.6 mg/dL (0.2-1)
[2020-02-27 08:33] LABS: TOT PROT 6.3 g/dl (6.4-8.2)
[2020-02-27] MEDS: GABAPENTIN 300 MG CAPSULE PO SCH (09:51)
[2020-02-27] MEDS: FERROUS SO4 325 MG TABLET (FP) PO SCH (09:51)
[2020-02-27] MEDS: DEXAMETHASONE SOD PHOSPHATE 4 MG/1 ML VIAL IVPUSH SCH (09:51)
[2020-02-27] MEDS: HEPARIN NA (PORCINE) 5,000 UNITS/ML 1ML VIAL SQ SCH ×2 (09:51→21:15)
[2020-02-27] MEDS: MULTIVITAMINS THER W-MINERALS COMBO TABLET (FP) PO SCH (09:51)
[2020-02-27] MEDS: ATENOLOL 50 MG TABLET (FP) PO SCH (09:51)
[2020-02-27] MEDS: REMDESIVIR 100 MG in SODIUM CHLORIDE 230 ML IVPB SCH (13:59)
[2020-02-27] MEDS ORDERED: POLYETHYLENE GLYCOL 3350 119 GM BTL PO PRN (19:06)
[2020-02-27] MEDS: MELATONIN 5 MG TABLETS PO PRN (21:15)
[2020-02-27] MEDS: DOCUSATE SODIUM 100 MG CAPSULE (FP) PO SCH (21:15)
[2020-02-28] MEDS: SOLIFENACIN SUCCINATE 5 MG TAB PO SCH (06:04)
[2020-02-28] MEDS: DOCUSATE SODIUM 100 MG CAPSULE (FP) PO SCH ×2 (06:04→14:36)
[2020-02-28] MEDS ORDERED: PT OWN MED DRAWER 7, Y5N ONE (09:20)
[2020-02-28] MEDS: FERROUS SO4 325 MG TABLET (FP) PO SCH (09:50)
[2020-02-28] MEDS: GABAPENTIN 300 MG CAPSULE PO SCH (09:50)
[2020-02-28] MEDS: DEXAMETHASONE SOD PHOSPHATE 4 MG/1 ML VIAL IVPUSH SCH (09:51)
[2020-02-28] MEDS: ATENOLOL 50 MG TABLET (FP) PO SCH (09:51)
[2020-02-28] MEDS: HEPARIN NA (PORCINE) 5,000 UNITS/ML 1ML VIAL SQ SCH (09:51)
[2020-02-28] MEDS: MULTIVITAMINS THER W-MINERALS COMBO TABLET (FP) PO SCH (09:51)
[2020-02-28 13:37] VITALS: BP 153/76; PULSE 70; TEMP 98.6
[2020-02-28] MEDS: REMDESIVIR 100 MG in SODIUM CHLORIDE 230 ML IVPB SCH (14:36)
== END 2020-02-28 16:45 | disposition home or self-care (01) | DRG 179 ==
LOC: JER 19:35 → JERBED 22:19 → J7W 02-24 01:06
PROVIDERS: ADMIT Internal Medicine; ATTEND Internal Medicine
PROC: 8E0ZXY6 Isolation (ICD-10-PCS; 2020-02-23)
PROC: XW033E5 Introduction of Remdesivir Anti-infective into Peripheral Vein, Percutaneous Approach, New Technology Group 5 (ICD-10-PCS; principal; 2020-02-24)
DX: U07.1 COVID-19 (principal); R09.02 Hypoxemia; K21.9 Gastro-esophageal reflux disease without esophagitis; I10 Essential (primary) hypertension; E78.5 Hyperlipidemia, unspecified; Z85.3 Personal history of malignant neoplasm of breast; N32.81 Overactive bladder; G89.29 Other chronic pain; Z88.0 Allergy status to penicillin
CPT/HCPCS: 36415; 71045-TC-FY; 80053; 81003; 82248; 82550; 82728; 83605; 83615; 84484; 85025; 85379; 85610; 85730; 86140; 87040; 87086; 87804; 90732; 93005; 93010; 94761; 97116-GP; 97161-GP; 99285-25; C9399; C9803; G0009; J0131; J1100; J1644; U0003

== ENCOUNTER 2024-02-20 09:55 | Emergency (ER) | payer OTHER, MEDICARE ==
[2024-02-20 10:14] VITALS: TEMP 97.6; BMI 26.5
[2024-02-20] MEDS ORDERED: ACETAMINOPHEN 325 MG TABLET (FP) ONE (10:21)
[2024-02-20] MEDS: ACETAMINOPHEN 325 MG TABLET (FP) PO ONE (10:24)
[2024-02-20] MEDS ORDERED: DIPHTH,PERTUSS(ACELL),TET 0.5 ML DISP.SYRIN IM ONE ×2 (11:37→11:39)
[2024-02-20] MEDS: DIPHTH,PERTUSS(ACELL),TET 0.5 ML DISP.SYRIN IM ONE (11:45)
[2024-02-20 13:09] VITALS: BP 185/81; PULSE 62
== END 2024-02-20 13:13 | disposition home or self-care (01) ==
LOC: JER 09:55
PROC: 0HQ0XZZ Repair Scalp Skin, External Approach (ICD-10-PCS; principal; 2024-02-20)
PROC: 3E0234Z Introduction of Serum, Toxoid and Vaccine into Muscle, Percutaneous Approach (ICD-10-PCS; 2024-02-20)
DX: S01.01XA Laceration without foreign body of scalp, initial encounter (principal); W01.0XXA Fall on same level from slipping, tripping and stumbling without subsequent striking against object, initial encounter; Z23 Encounter for immunization
CPT/HCPCS: 12002-25; 70450-TC; 72125-TC; 90471; 90715; 99284-25